=== PATIENT | female | born 1950 | race Caucasian/White ===

== ENCOUNTER → 2018-03-03 07:54 | Outpatient (CLI) | payer MEDICARE, BC, SELFPAY ==
--- NOTE | 2018-03-03 09:24 | PM.TREADMILL ---
Cardiac Stress Test Report Referral & Results Date Patient Seen: 03/03/18 Requesting provider: Bryan Diez Indication: Dyspnea upon exertion Rest ECG: Unremarkable Procedure Note: After both written and verbal informed consent the patient had an IV started by the diagnostic imaging RN and then was hooked up to the treadmill monitoring system. The patient was placed on the treadmill at 1 mile an hour with no elevation and was then injected with the Parris scan material. The Cardiolite was then immediately administered. The patient spent an additional 2-3 minutes on the treadmill before being returned to the [facility] in the supine position. The patient had a normal response to all infused materials. Patient was quite dyspneic with wheezing after administration of Lexiscan but oxygen saturation remained normal. This resolved rather rapidly by the time she was 3 min into recovery was no longer wheezing and felt much better Impression: Normal response to infuse materials as above Perfusion imaging to be reported separately Please note: Actual ECG tracings can be found in the PACS system.
--- NOTE | 2018-03-05 09:21 | DI.NM.S_ITS ---
DATE OF SERVICE: 03/03/2018 PROCEDURE: Pharmacologic perfusion study. INDICATIONS: Chest pain, shortness of breath with underlying hypertension and hyperlipidemia. RADIOPHARMACEUTICAL: 26.3 mCi of technetium-99 Myoview IV was injected at stress, and 27.1 mCi of technetium-99 Myoview IV was injected at rest. CARDIAC STRESS: The patient underwent IV Lexiscan perfusion study under the supervision of an attending staff. The patient felt shortness of breath and wheezing during Lexiscan infusion. Oxygen saturation remained preserved. Otherwise, the patient remained hemodynamically stable. Baseline EKG revealed sinus rhythm with low voltage complexes in chest leads. During stress, there was no convincing reversible ischemia. No significant arrhythmias seen other than sinus tachycardia. RAW DATA: There was significant breast shadow seen. GATED STUDY: Resting LV ejection fraction was 70%, and stress LV ejection fraction was 75%. I don't see any significant wall motion abnormality. Resting end-diastolic volume 115 mL. TID ratio is 0.81, which is within normal limits. Lung/heart ratio is 0.29, which is within normal limits. MYOCARDIAL PERFUSION: Resting supine images revealed a small sized mildly decreased perfusion of the distal septum, distal anterior wall, inferior apex. Stress supine images revealed small sized mildly decreased perfusion of distal anterior wall. During prone images, all of those defects were resolved, suggestive of breast tissue attenuation artifact. I do not see any convincing ischemia infarction. CONCLUSION: This is a normal myocardial perfusion study with evidence of breast tissue attenuation artifact, as stated above, which got completely resolved during prone images. LV function is preserved. Overall, this is a low- risk myocardial perfusion scan. Martha Coles - [employer]ATOR/deanna/ts doc#: [id number]/job#: [id number] dd: 03/04/2018 12:25:00 dt: 03/05/2018 09:08:00 DICTATING MD/COPIES TO: Elyssa Paulino MD COPIES MNE: HAYLIE
== END ==
PROVIDERS: PCP Family Medicine; Visit Provider Family Medicine
DX: R07.9 Chest pain, unspecified (principal); R06.02 Shortness of breath; I10 Essential (primary) hypertension; E78.5 Hyperlipidemia, unspecified; R06.00 Dyspnea, unspecified
CPT/HCPCS: 78452; 93016; 93017; 93018; A9502; J2785

== ENCOUNTER → 2023-07-06 13:58 | Outpatient (CLI) | payer MEDICARE, BC, SELFPAY ==
--- NOTE | 2023-07-09 01:25 | DI.NM.S_ITS ---
DATE OF SERVICE: 07/08/2023 PROCEDURE: Pharmacological perfusion study. INDICATIONS: Chest discomfort with underlying hypertension, hyperlipidemia. RADIOPHARMACEUTICAL: 24.0 millicuries technetium-99m Myoview IV was injected at stress and 27.3 millicuries technetium-99m Myoview IV was injected at rest. CARDIAC STRESS: Patient underwent pharmacological perfusion study under the supervision of an attending staff. Patient received Lexiscan as per standard protocol. Patient had mild lightheadedness and some dyspnea. No chest discomfort. Baseline rhythm was sinus. During stress, no convincing ischemic changes. No significant arrhythmias. RAW DATA: Breast shadow was seen. GATED STUDY: Resting LV ejection fraction 71% and stress LV ejection fraction 72% without any wall motion abnormalities. Resting end- diastolic volume 96 mL. TID ratio 0.94, which is within normal limits. Lung/heart ratio 0.33, which is within normal limits. MYOCARDIAL PERFUSION SCAN: Stress supine and resting supine images were compared to each other. There are no stress prone images. There is a small size, mildly decreased perfusion of distal anteroseptum. Overall, I do not see any significant reversible ischemia. There are no prone images. CONCLUSION: No significant reversible ischemia. Predominantly fixed, small size, mildly decreased perfusion of distal anteroseptum. In this study we do not have any prone images; however, patient had perfusion study in February 2018. At that time, patient had similar perfusion defect during stress and resting supine images, which completely resolved with stress/prone images. Hence, likely we are dealing with tissue attenuation artifact. In view of preserved left ventricular function without any reversible ischemia, overall low-risk myocardial perfusion scan. SharynMartha - POWER HOUSE ENGINEER/fn/ec doc#: [id number]/job#: [id number] dd: 07/08/2023 17:32:00 dt: 07/09/2023 01:09:00 DICTATING MD/COPIES TO: Elyssa Paulino MD COPIES MNE: HAYLIE;
== END ==
PROVIDERS: PCP Family Medicine; Referring Provider Nurse Practitioner; Visit Provider Nurse Practitioner
DX: R07.89 Other chest pain (principal); I10 Essential (primary) hypertension
CPT/HCPCS: 78452; 93017; A9502; J2785